=== PATIENT | female | born 1970 | race Caucasian/White ===

== ENCOUNTER → 2016-09-01 | Outpatient (CLI) | payer BC | LOC: BHSO 08:43 | DX: F33.41 Major depressive disorder, recurrent, in partial remission (principal) ==

== ENCOUNTER → 2016-10-02 | Outpatient (CLI) | payer BC | LOC: BHSO 07:58 | DX: F33.41 Major depressive disorder, recurrent, in partial remission (principal) ==

== ENCOUNTER → 2016-10-30 | Outpatient (CLI) | payer BC | LOC: BHSO 08:36 | DX: F33.41 Major depressive disorder, recurrent, in partial remission (principal) ==

== ENCOUNTER → 2017-02-03 | Outpatient (CLI) | payer BC | LOC: BHSO 09:38 | DX: F33.42 Major depressive disorder, recurrent, in full remission (principal) ==

== ENCOUNTER → 2017-08-02 | Outpatient (CLI) | payer BC | LOC: BHSO 10:01 | DX: F33.42 Major depressive disorder, recurrent, in full remission (principal) | CPT/HCPCS: G0463 ==

== ENCOUNTER → 2018-01-17 | Outpatient (CLI) | payer BC | LOC: BHSO 12:56 | DX: F41.1 Generalized anxiety disorder (principal) | CPT/HCPCS: G0463 ==

== ENCOUNTER 2018-06-21 20:13 | Emergency (ER) | payer BC ==
[~2018-06-21] VITALS: Ht 177.8 cm; Wt 97.7 kg
[2018-06-21 20:23] VITALS: TEMP 99.2
[2018-06-21] MEDS ORDERED: TOPROL XL 25MG25 MG PO (23:27)
[2018-06-21 23:29] VITALS: BP 137/79; PULSE 81
== END 2018-06-21 23:36 | disposition home or self-care (01) ==
LOC: COL.ER 20:13
DX: S86.012A Strain of left Achilles tendon, initial encounter (principal); I10 Essential (primary) hypertension; Z88.0 Allergy status to penicillin; X50.0XXA Overexertion from strenuous movement or load, initial encounter; Y92.318 Other athletic court as the place of occurrence of the external cause; Y93.68 Activity, volleyball (beach) (court)
CPT/HCPCS: Q4045

== ENCOUNTER 2019-09-15 10:13 | Emergency (ER) | payer BC ==
[~2019-09-15] VITALS: Ht 177.8 cm; Wt 102.3 kg
[~2019-09-15 10:13] MED LIST: TOPROL XL 25MG25 MG PO
[2019-09-15 10:20] VITALS: TEMP 98
[2019-09-15] MEDS ORDERED: MONODOX50 M1 PO (10:24)
[2019-09-15 11:02] LABS: COLLECTION METHOD CLEAN CATCH
[2019-09-15 11:09] LABS: BASO # 0.1 (0.0-0.2); BASO % 1.5 % (0.0-2.0); EOS # 0.1 (0.0-0.7); GRAN # 3.5 (1.4-6.5); GRAN % 64.3 % (42.2-75.2); HEMATOCRIT 39.7 % (37.0-47.0); HEMOGLOBIN 12.8 g/dl (12.5-16.0); LYMPH # 1.2 (1.2-3.4); LYMPH % 22.4 % (20.0-51.0); MEAN CELL VOLUME 86 fl (80.0-100.0); MEAN CORPUSCULAR HEMOGLOBIN 28 pg (27.0-31.0); MEAN CORPUSCULAR HGB CONC 32 g/dl (33.0-37.0); MEAN PLATELET VOLUME 10.4 fl (7.4-10.4); MONO # 0.5 (0.1-0.6); MONO % 9.6 % (1.7-9.3); PLATELET COUNT 256 K/mm3 (130-400); RED BLOOD COUNT 4.63 M/mm3 (4.10-5.30); REDCELL DISTRIBUTION WIDTH-CV 13.5 % (11.5-14.5)
[2019-09-15 11:15] LABS: MUCOUS Present /lpf; PH 5 (5-8); SQUAMOUS EPITHELIAL 0-2 /hpf; URINE APPEARANCE Clear; URINE BACTERIA None Seen /hpf; URINE BILIRUBIN Negative (NEGATIVE); URINE BLOOD Negative (NEGATIVE); URINE COLOR Yellow; URINE GLUCOSE Negative (NEGATIVE); URINE KETONE Negative (NEGATIVE); URINE LEUKOCYTE ESTERASE Negative (NEGATIVE); URINE NITRATE Negative (NEGATIVE); URINE PROTEIN(semi-quant) Negative (NEGATIVE); URINE RBC 0-2 /hpf; URINE UROBILINOGEN Negative (NEGATIVE)
[2019-09-15 11:25] LABS: ALBUMIN 4.7 gm/dL (3.5-5.0); BILIRUBIN,TOTAL 0.6 mg/dL (0.0-1.0); C-REACTIVE PROTEIN 0.8 mg/dL (0.0-0.9); CALCIUM 9.7 mg/dL (8.4-10.2); CREATININE, serum 0.75 (0.52-1.25); POTASSIUM 4.2 mmol/L (3.4-5.0); TOTAL PROTEIN 8.6 gm/dL (6.4-8.2)
[2019-09-15] MEDS ORDERED: PROTONIX20 MG PO (14:20)
[2019-09-15 14:27] VITALS: BP 129/83; PULSE 89
== END 2019-09-15 14:27 | disposition home or self-care (01) ==
LOC: COL.ER 10:13
PROVIDERS: Emergency Medicine
DX: R10.11 Right upper quadrant pain (principal); R10.31 Right lower quadrant pain

== ENCOUNTER → 2019-11-24 | Outpatient (CLI) | payer BC ==
[~2019-11-24] MED LIST changes: +MONODOX50 M1 PO; +PROTONIX20 MG PO
== END ==
LOC: COL.RAD 11:31
DX: R10.11 Right upper quadrant pain (principal); R19.7 Diarrhea, unspecified
CPT/HCPCS: A9537; J2805

== ENCOUNTER 2019-12-12 06:40 | Day surgery (SDC) | payer BC ==
[~2019-12-12] VITALS: Ht 177.8 cm; Wt 101.9 kg
[2019-12-12] VITALS (8 sets, daily range): BP systolic 122–142; BP diastolic 60–98; PULSE 51–78; TEMP 97.2–98.4
[2019-12-12] MEDS ORDERED: NORVASC 5MG5 MG/TAB PO (07:13)
[2019-12-12] MEDS ORDERED: EPA FISH OIL1 SGL PO (07:14)
[2019-12-12] MEDS ORDERED: NATURAL FLAX1000 MG PO (07:14)
--- NOTE | 2019-12-12 08:13 | NUR ---
Initial visit; Patient and her thanked Helper Coordinator for offering encouragement and prayer prior to her surgical procedure.
[2019-12-12] MEDS ORDERED: NORCO 325 MG-51 TAB PO (08:49)
--- NOTE | 2019-12-12 09:40 | NUR ---
Patient is awake and alert. Temp 97.6 and room air sats 92%. Bandaids x3 dry on the abdomen. IV fluids infusing and site is free of redness. Spouse in room. Siderails up x2 and call light in reach. Drowsy and returns easily to sleep.
--- NOTE | 2019-12-12 09:55 | NUR ---
Sats 88% on room air and placed on oxygen at 2L per nasal cannula. Allowed to rest.
--- NOTE | 2019-12-12 10:10 | NUR ---
More awake and rests when not disturbed.
--- NOTE | 2019-12-12 10:25 | NUR ---
Continues to rest without complaints.
--- NOTE | 2019-12-12 10:40 | NUR ---
Awake and talking with spouse.
--- NOTE | 2019-12-12 10:50 | NUR ---
Drinking juice and water. Denies nausea or pain.
--- NOTE | 2019-12-12 11:10 | NUR ---
Room air sats 95% and is resting. Tolerates water.
--- NOTE | 2019-12-12 11:30 | NUR ---
Up walking in the hallway. Into the bathroom. Unable to void at this time. Returns to room and is sitting on the edge of the cart eating toast and drinking juice.
--- NOTE | 2019-12-12 12:02 | NUR ---
Patient was able to void and dresses self. INT needle discontinued and site is free of redness. Given dismissal instructions and voices understanding of these. Provided script for [place] and follow up appointment made.
--- NOTE | 2019-12-12 12:04 | NUR ---
Patient dismissed to home driven by spouse and taken to the front door per wheelchair by Lesly RENDON and assisted into the vehicle.
== END 2019-12-12 12:04 | disposition home or self-care (01) ==
LOC: SDCO 06:40
DX: K81.1 Chronic cholecystitis (principal); E83.110 Hereditary hemochromatosis; I10 Essential (primary) hypertension; K58.9 Irritable bowel syndrome, unspecified; Z20.828 Contact with and (suspected) exposure to other viral communicable diseases; Z79.899 Other long term (current) drug therapy; Z80.1 Family history of malignant neoplasm of trachea, bronchus and lung; Z88.0 Allergy status to penicillin
CPT/HCPCS: J0690; J1100; J2270; J2405; J2550; J2704; J2710; J3010; J7030; J7120

== ENCOUNTER 2021-09-05 09:59 | Day surgery (SDC) | payer BC ==
[~2021-09-05] VITALS: Ht 177.8 cm; Wt 81.8 kg
[~2021-09-05 09:59] MED LIST changes: +EPA FISH OIL1 SGL PO; +NATURAL FLAX1000 MG PO; +NORCO 325 MG-51 TAB PO; +NORVASC 5MG5 MG/TAB PO
[2021-09-05 10:42] VITALS: BP 112/75; PULSE 75; TEMP 98.5
[2021-09-05 13:20] VITALS: BP 110/43; PULSE 79; TEMP 96.9
--- NOTE | 2021-09-05 13:20 | NUR ---
PATIENT BACK TO ROOM 4 VIA CART. ASSIST X 1 TO CHAIR. AT BEDSIDE. VITAL SIGNS WNL. SHE DENIES ANY NAUSEA OR PAIN. WILL CONTINUE TO MONITOR.
[2021-09-05 13:35] VITALS: BP 105/51; PULSE 71
--- NOTE | 2021-09-05 13:35 | NUR ---
PATIENT IS ALERT AND ORIENTED. DOCTOR AT BEDSIDE. VITAL SIGNS WNL. WILL CONTINUE TO MONITOR.
[2021-09-05 13:50] VITALS: BP 137/94; PULSE 60
--- NOTE | 2021-09-05 13:50 | NUR ---
PATIENT IS READY FOR DISCHARGE. VITAL SIGNS WNL. IV DISCONTINUED. AT BEDSIDE. DISCHARGE INSTRUCTIONS REVIEWED. WILL DISCHARGE ONCE PATIENT IS DRESSED.
== END 2021-09-05 13:54 | disposition home or self-care (01) ==
LOC: SDCO 09:59
DX: Z12.11 Encounter for screening for malignant neoplasm of colon (principal); D12.4 Benign neoplasm of descending colon; K57.30 Diverticulosis of large intestine without perforation or abscess without bleeding; K29.50 Unspecified chronic gastritis without bleeding; D50.9 Iron deficiency anemia, unspecified; K29.70 Gastritis, unspecified, without bleeding
CPT/HCPCS: J2704; J7030

== ENCOUNTER 2023-06-25 15:36 | Inpatient (IN) | payer OTHER ==
[~2023-06-25] VITALS: Ht 177.8 cm; Wt 91.8 kg
[2023-06-25] MEDS ORDERED: MASON NATURAL2000 IU PO (15:51)
[2023-06-25] MEDS ORDERED: ASPIRIN E.C. 8181 MG PO (15:52)
[2023-06-25] MEDS ORDERED: dilTIAZem 25 MG/5 ML VIAL IV ONE (16:00)
[2023-06-25 16:38] LABS: BASO # 0.1 K/mm3 (0.0-0.2); BASO % 1.7 % (0.0-2.0); EOS # 0.1 K/mm3 (0.0-0.7); EOS % 2.3 % (0.0-4.0); GRAN # 3.6 K/mm3 (1.4-6.5); GRAN % 59.8 % (42.2-75.2); HEMATOCRIT 43.4 % (37.0-47.0); HEMOGLOBIN 14.1 g/dl (12.5-16.0); LYMPH # 1.4 K/mm3 (1.2-3.4); MEAN CELL VOLUME 87 fl (80.0-100.0); MEAN CORPUSCULAR HEMOGLOBIN 28 pg (27-31); MEAN CORPUSCULAR HGB CONC 33 g/dl (33.0-37.0); MEAN PLATELET VOLUME 10.7 fl (7.4-10.4); MONO # 0.7 K/mm3 (0.1-0.6); MONO % 12.2 % (1.7-9.3); PLATELET COUNT 246 K/mm3 (130-400); RED BLOOD COUNT 4.98 M/mm3 (4.10-5.30); REDCELL DISTRIBUTION WIDTH-CV 14.4 % (11.5-14.5)
[2023-06-25 16:57] LABS: ALBUMIN 4.3 g/dL (3.5-5.0); BILIRUBIN,TOTAL 0.3 mg/dL (0.2-1.2); CREATININE, serum 0.88 mg/dL (0.57-1.11); MAGNESIUM 2.1 mg/dL (1.6-2.6); POTASSIUM 3.8 mEq/L (3.5-4.5)
[2023-06-25] MEDS ORDERED: niCARdipine 200 ML IV ONE (17:15)
[2023-06-25] MEDS ORDERED: Heparin 5,000 UNITS/ML 1 ML VIAL IV ONE (17:15)
[2023-06-25] MEDS ORDERED: Heparin 5,000 UNITS/ML 1 ML VIAL IV PRN (17:15)
[2023-06-25] MEDS ORDERED: Heparin/D5W 250 ML IV SCH ×2 (17:15→18:30)
[2023-06-25 17:17] LABS: TSH w REFLEX 1.666 uIU/mL (0.350-4.940)
[2023-06-25 17:26] LABS: INR 1.1 (0.8-3.0); PROTHROMBIN TIME 11.4 SECONDS (9.7-12.8)
[2023-06-25 17:28] LABS: PARTIAL THROMBOPLASTIN TIME 32.7 SECONDS (26.0-37.0)
[2023-06-25] MEDS ORDERED: Potassium Bicarbonate/Citrate 20 MEQ Effervescent TAB PO ONE (18:30)
[2023-06-25] MEDS ORDERED: *Potassium Replacement Protocol MC SCH (18:30)
[2023-06-25] MEDS ORDERED: Acetaminophen 325 MG TAB PO PRN (18:45)
[2023-06-25] MEDS ORDERED: Acetaminophen 500 MG TAB PO ONE (19:45)
[2023-06-25] MEDS ORDERED: VITAMIN D31000 I1 PO (20:15)
[2023-06-25 21:18] VITALS: BP 128/67; PULSE 69; TEMP 97.5
[2023-06-25] MEDS ORDERED: Ketorolac 15 MG/ML VIAL IV ONE (22:45)
[2023-06-25] MEDS ORDERED: diphenhydrAMINE 50 MG/ML 1 ML VIAL IV ONE (22:45)
--- NOTE | 2023-06-25 22:54 | NUR ---
Pt arrived to unit around 2117 via ED transport. Cardizem drip at 5ml/hr and heaparin drip on hold pending head CT. Pt c/o headache, tylenol given in ED with no relief, provider notified awaiting orders. Pt is alert and oriented, good historian. Accompanied by Son and Daughter. Pt seems a bit anxious about te cost of the hospital stay if she isnt going to get any results, pt states she was hospitalized for afib last year and ended up with a hospital bill and no outcomes that were satisfactory. Per provider verbal ok given to restart heparin drip at 16.5ml/hr.
[2023-06-25 23:08] VITALS: BP 116/63; PULSE 63; TEMP 97.4
[2023-06-25 23:40] VITALS: BP 105/70; PULSE 58; TEMP 97.6
[2023-06-26 00:09] VITALS: BP 129/71; PULSE 61; TEMP 97.8
[2023-06-26 01:00] VITALS: BP_SYST 129
[2023-06-26 03:47] VITALS: BP 111/59; PULSE 57; TEMP 97.9
[2023-06-26 05:00] VITALS: BP_SYST 111
[2023-06-26 06:33] LABS: BASO # 0.1 K/mm3 (0.0-0.2); BASO % 2.1 % (0.0-2.0); EOS # 0.3 K/mm3 (0.0-0.7); EOS % 5.3 % (0.0-4.0); GRAN # 2.2 K/mm3 (1.4-6.5); GRAN % 46.2 % (42.2-75.2); HEMATOCRIT 37.5 % (37.0-47.0); HEMOGLOBIN 12.8 g/dl (12.5-16.0); LYMPH # 1.6 K/mm3 (1.2-3.4); LYMPH % 33.1 % (20.0-51.0); MEAN CELL VOLUME 85 fl (80.0-100.0); MEAN CORPUSCULAR HEMOGLOBIN 29 pg (27-31); MEAN CORPUSCULAR HGB CONC 34 g/dl (33.0-37.0); MEAN PLATELET VOLUME 10.9 fl (7.4-10.4); MONO # 0.6 K/mm3 (0.1-0.6); MONO % 13.1 % (1.7-9.3); PLATELET COUNT 204 K/mm3 (130-400); REDCELL DISTRIBUTION WIDTH-CV 14.5 % (11.5-14.5)
[2023-06-26 06:52] LABS: CALCIUM 9.4 mg/dL (8.4-10.2); CREATININE, serum 0.83 mg/dL (0.57-1.11)
[2023-06-26 07:08] LABS: CHOLESTEROL RISK RATIO 3.6
[2023-06-26 07:37] VITALS: BP 122/63; PULSE 59; TEMP 98.4
--- NOTE | 2023-06-26 08:37 | NUR ---
PER CARDIOLOGY PATIETN IN [facility]. THIS RN TO STOP PATIENT CARDIZEM
[2023-06-26] MEDS ORDERED: Apixaban 5 MG TAB PO SCH (09:00)
[2023-06-26] MEDS ORDERED: Cholecalciferol (Vit D3) 1000 Units TAB PO SCH (09:00)
[2023-06-26] MEDS ORDERED: DOXYCYCLINE MONOHYDRATE 25 MG/5 ML PO SCH (09:00)
--- NOTE | 2023-06-26 09:48 | NUR ---
JANE was notified patient will be discharging today and will need information on Eliquis and Multaq for discount options. aniline press worker met with patient to discuss discharge planning. Patient lives in [place] with her , Sandeep, P# [phone]. Second contact is Jailene, P# [phone]. PCP is Dr. Glasgow, pharmacy is [facility]. No issues affording medications. Primary insurance is [employer] secondary is [employer]. No DPOA-HC and not interested in completing one at this time. No DME and reports to be independent with ADLS. Patient is able to transport to and from appointments. 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 Patient would like to return home at time of discharge. JANE provided copay card for Elquis and information applying for savings card on [employer]. Patient reports she already applied for this and will present it to the pharmacy. SW explained if her Eliquis is too expensive after her copay card is used, to talk to her pharmacist and PCP for other options. Patient understands, no questions at this time. DIscharge plan: Home
[2023-06-26] MEDS ORDERED: ELIQUIS 5MG PO (09:51)
[2023-06-26] MEDS ORDERED: MULTAQ400 MG PO (09:51)
--- NOTE | 2023-06-26 10:30 | NUR ---
PATIENT AWAKE AND ALERT, SITTING UP IN RECLINER. IV AND TELE REMOVED. PATIENT GIVEN DISCHARGE INSTRUCTIONS AND EDUCATION. PATIENT GIVEN COUPON FOR ELIQUIS AND ASLO WAS ABLE TO USE [employer] WEBSITE FOR DISCOUNT CARD. PATIENTS NEW MEDICAIOTN REVIEWED. ALL QUESTIONS ANSWERED. PATIENT LEFT IN STABLE CONDITION,PICKED UP IN THE ER BY HER SHERRY.
== END 2023-06-26 10:30 | disposition home or self-care (01) | DRG 310 ==
LOC: COL.ER 15:36 → MEDICAL 18:16
PROVIDERS: Emergency Medicine; Nurse Practitioner Family; Physician Assistant; ADMIT Internal Medicine
DX: I48.92 Unspecified atrial flutter (principal); I48.91 Unspecified atrial fibrillation; I10 Essential (primary) hypertension; I45.10 Unspecified right bundle-branch block; E83.119 Hemochromatosis, unspecified; L71.8 Other rosacea; K21.9 Gastro-esophageal reflux disease without esophagitis; M19.90 Unspecified osteoarthritis, unspecified site; G40.909 Epilepsy, unspecified, not intractable, without status epilepticus; D64.9 Anemia, unspecified; E78.5 Hyperlipidemia, unspecified; J45.909 Unspecified asthma, uncomplicated; Z79.82 Long term (current) use of aspirin; Z90.49 Acquired absence of other specified parts of digestive tract; Z88.0 Allergy status to penicillin; Z79.899 Other long term (current) drug therapy; Z23 Encounter for immunization
CPT/HCPCS: J0780; J1200; J1644; J1885

== ENCOUNTER → 2023-10-28 | Outpatient (CLI) | payer OTHER ==
[~2023-10-28] MED LIST changes: +ASPIRIN E.C. 8181 MG PO; +ELIQUIS 5MG PO; +MASON NATURAL2000 IU PO; +MULTAQ400 MG PO; +VITAMIN D31000 I1 PO
== END ==
LOC: MC.RAD 10:31
DX: Z12.31 Encounter for screening mammogram for malignant neoplasm of breast (principal)